=== PATIENT | male | born 1980 | race Caucasian/White ===

== ENCOUNTER 2018-01-27 11:24 | Emergency (ER) | payer BC ==
[2018-01-27 12:38] VITALS: BP 131/82
--- NOTE | 2018-01-27 12:50 | UC ---
Skin Complaint HPI - HPI Summary HPI Summary: pATIENT GOT A BITE BY A TICK IN THE RIGHT ABDOMEN, REMOVED ALL BUT THE BENY - History of Current Complaint Chief Complaint: [facility] Time Seen by Provider: 01/27/18 12:26 Stated Complaint: TICK REMOVAL Hx Obtained From: Patient Onset/Duration: Sudden Onset, Lasting Hours Skin Exposure Onset/Duration: Hours Ago Timing: Constant Onset Severity: Mild Current Severity: None Pain Intensity: 0 Location: Discrete Related History: Possible Reaction to: Insect - Allergy/Home Medications Allergies/Adverse Reactions: Allergies Allergy/AdvReac Type Severity Reaction Status Date / Time No Known Allergies Allergy Verified 01/27/18 12:33 Home Medications: Home Medications Ibuprofen TAB* [Advil TAB*] 400 mg PO Q6H PRN 01/27/18 [History Confirmed ] Review of Systems Constitutional: Negative Skin: Other - tick bite Eyes: Negative ENT: Negative Respiratory: Negative Cardiovascular: Negative Gastrointestinal: Negative Genitourinary: Negative Motor: Negative Neurovascular: Negative Musculoskeletal: Negative Neurological: Negative Psychological: Negative Is Patient Immunocompromised?: No All Other Systems Reviewed And Are Negative: Yes PMH/Surg Hx/FS Hx/Imm Hx Previously Healthy: Yes - Surgical History Surgical History: None - Family History Known Family History: Negative: Cardiac Disease, Hypertension - Social History Alcohol Use: Daily Alcohol Amount: 5 beer daily Substance Use Type: None Smoking Status (MU): Heavy Every Day Tobacco Smoker Type: Cigarettes Amount Used/How Often: 1 PPD - Immunization History Most Recent Tetanus Shot: 2005 or 2006 Physical Exam Triage Information Reviewed: Yes Appearance: Well-Appearing, Well-Nourished, Ill-Appearing Vital Signs: Initial Vital Signs Temp 97.8 F 01/27/18 12:34 Pulse 69 01/27/18 12:34 Resp 18 01/27/18 12:34 BP 131/82 01/27/18 12:34 Pulse Ox 99 01/27/18 12:34 Vital Signs Reviewed: Yes Eye Exam: Normal ENT Exam: Normal Dental Exam: Normal Neck exam: Normal Respiratory Exam: Normal Cardiovascular Exam: Normal Abdominal Exam: Normal Bowel Sounds: Positive: Present Musculoskeletal Exam: Normal Neurological Exam: Normal Psychological Exam: Normal Skin Exam: Normal Course/Dx - Course Course Of Treatment: hx obtained, exam performed ,meds reviewed, no tick to remve, educated on lyme disease - Differential Diagnoses - Skin Complaint Differential Diagnoses: Tick Born Illness - Diagnoses Provider Diagnoses: tick bite Discharge - Sign-Out/Discharge Documenting (check all that apply): Discharge - Discharge Plan Condition: Stable Disposition: HOME Patient Education Materials: Tick Bite (ED) Referrals: No Primary Care Phys,NOPCP [Primary Care Provider] - Additional Instructions: 1. no further treatment, Madeline OF LYME DISEASE AT THIS TIME ARE VERY LOW, BUT MONITOR FOR S/S IN THE NEXT 2 WEEKS. - Billing Disposition and Condition Condition: STABLE Disposition: HOME
== END 2018-01-27 12:58 | disposition home or self-care (01) ==
LOC: UCCORT 11:24
DX: S30.861A Insect bite (nonvenomous) of abdominal wall, initial encounter (principal); W57.XXXA Bitten or stung by nonvenomous insect and other nonvenomous arthropods, initial encounter
CPT/HCPCS: 99201; G0463